=== PATIENT | male | born 1965 | race Two or more races ===

== ENCOUNTER 2018-03-07 07:29 | Day surgery (SDC) | payer OTHER ==
[~2018-03-07] VITALS: Ht 180.3 cm; Wt 90.7 kg
[2018-03-07 07:50] VITALS: BP 128/75
[2018-03-07 11:23] VITALS: BP 124/66
== END 2018-03-07 12:00 | disposition home or self-care (01) ==
LOC: DS 07:29 → OR 11:30 → GI 11:30 → DS 12:00
PROVIDERS: Internal Medicine Gastroenterology
PROC: 0DBN8ZZ Excision of Sigmoid Colon, Via Natural or Artificial Opening Endoscopic (ICD-10-PCS; 2018-03-07)
PROC: 0DBE8ZZ Excision of Large Intestine, Via Natural or Artificial Opening Endoscopic (ICD-10-PCS; principal; 2018-03-07 11:30)
PROC: 0DBP8ZZ Excision of Rectum, Via Natural or Artificial Opening Endoscopic (ICD-10-PCS; 2018-03-07 11:30)
DX: R19.7 Diarrhea, unspecified (principal); K62.1 Rectal polyp; D12.5 Benign neoplasm of sigmoid colon; Z80.0 Family history of malignant neoplasm of digestive organs; Z68.28 Body mass index [BMI] 28.0-28.9, adult
CPT/HCPCS: 45378; J1200; J1610; J2250; J2310; J3010; J3490